=== PATIENT | female | born 1950 | race Caucasian/White ===

== ENCOUNTER 2016-06-13 08:33 | Emergency (ER) | payer BC ==
[2016-06-13 08:38] VITALS: BP 147/79; PULSE 81; TEMP 97.8; O2SAT 97; BMI 27.4
[2016-06-13] MEDS ORDERED: Oxycodone/Acetaminophen 5/325 mg Tab ONE (09:29)
[2016-06-13] MEDS ORDERED: Oxycodone/Acetaminophen 5/325 mg Tab PO ONE (09:33)
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
--- NOTE | 2016-06-13 13:25 | RAD ---
PROCEDURE: Left Ankle Radiographs. HISTORY: ankle fracture COMPARISON: None FINDINGS: BONES: Normal. No fracture. JOINTS: Normal. No osteoarthritis. Ankle mortise maintained. Talar dome intact SOFT TISSUES: Normal. OTHER FINDINGS: None. IMPRESSION: Normal left ankle radiographs.
--- NOTE | 2016-06-13 13:25 | RAD ---
PROCEDURE: Left Foot Radiographs. HISTORY: foot fracture COMPARISON: None. FINDINGS: BONES: Plantar calcaneal spur noted. No osseous fracture identified. JOINTS: Normal. SOFT TISSUES: Normal. OTHER FINDINGS: None. IMPRESSION: No acute fracture.
== END 2016-06-13 13:57 | disposition home or self-care (01) ==
LOC: H.ER 08:33
DX: M25.572 Pain in left ankle and joints of left foot (principal); G20 Parkinson's disease; I10 Essential (primary) hypertension

== ENCOUNTER 2016-06-23 21:48 | Emergency (ER) | payer BC ==
[2016-06-23 21:48] VITALS: BMI 27.4
[2016-06-23 21:57] VITALS: RESP 16; TEMP 98.2; O2SAT 99
--- NOTE | 2016-06-23 22:31 | ED PDOC ---
HPI: Chest Pain Time Seen by Provider: 06/23/16 22:02 Chief Complaint (Nursing): Chest Pain Chief Complaint (Provider): Chest pain and abdominal pain History Per: Patient Additional Complaint(s): 66 yo female, no PMH, presents to ED for evaluation of abdominal cramping and increased flatulence that developed after eating dinner tonight. No nausea or vomiting. 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 Pt reports that she also experienced "stabbing" chest pain for a few seconds around 5 pm. Pt denies any chest pain or SOB at this time. Past Medical History Reviewed: Nursing Documentation, Vital Signs Vital Signs: Last Vital Signs Temp 98.2 F 06/23/16 21:49 Pulse 101 H 06/23/16 22:42 Resp 16 06/23/16 21:49 BP 131/78 06/23/16 22:03 Pulse Ox 99 06/23/16 22:31 - Medical History PMH: Anxiety, HTN, Hypothyroidism, Malignancy (breast cancer, thyroid cancer in remission), Parkinson's Disease Denies: Chronic Kidney Disease - Surgical History Other surgeries: Lumpectomy, Thyroidectomy - Family History Family History: States: CAD - Living Arrangements Living Arrangements: With Family - Social History Current smoker - smoking cessation education provided: No Alcohol: None Drugs: Denies - Immunization History Hx Tetanus Toxoid Vaccination: Yes Hx Influenza Vaccination: No Hx Pneumococcal Vaccination: No - Home Medications Home Medications: Ambulatory Orders Medication Instructions Recorded Ca Pantothenate/Folic Acid/V [Once 1 tab PO DAILY 08/11/14 Daily Multi-Vitamin] Carbidopa/Levodopa [Sinemet 25-100 1 tab PO QID 08/11/14 25 mg-100 mg] Ergocalciferol (Vitamin D2) 50,000 unit PO QWK 08/11/14 [Vitamin D2] Levothyroxine [Synthroid] 125 mcg PO DAILY 08/11/14 Rasagiline Mesylate [Azilect] 1 mg PO DAILY 08/11/14 Ropinirole HCl [Requip Xl] 4 mg PO BID 08/11/14 Naproxen 375 mg PO Q8 PRN #21 tab 04/29/15 diaZEpam [Valium] 5 mg PO Q6 PRN #8 tab 04/29/15 traMADol [Ultram] 50 mg PO TID PRN #12 tab 03/31/16 Cephalexin [Keflex] 500 mg PO QID #28 capsule 05/20/16 Dicyclomine [Bentyl] 10 mg PO QID PRN #10 cap 06/24/16 - Allergies Allergies/Adverse Reactions: Allergies Allergy/AdvReac Type Severity Reaction Status Date / Time No Known Allergies Allergy Verified 06/23/16 21:49 TIGRE Risk Score for UA/NSTEMI - TIGRE Risk Score Age > 64: YES 3 or more CAD Risk Factors: NO Known CAD (Stenosis greater than 50%): NO Aspirin use in past 7 days: NO Severe Angina: NO EKG ST changes greater than 0.5mm: NO Positive Cardiac Marker: NO TIGRE Score: 1 Risk %: 5% Review of Systems ROS Statement: Except As Marked, All Systems Reviewed And Found Negative Gastrointestinal: Positive for: Abdominal Pain Physical Exam - Reviewed Nursing Documentation Reviewed: Yes Vital Signs Reviewed: Yes - Physical Exam Appears: Positive for: Well, Non-toxic, No Acute Distress Head Exam: Positive for: ATRAUMATIC, NORMAL INSPECTION, NORMOCEPHALIC Skin: Positive for: Normal Color, Warm, DRY Eye Exam: Positive for: EOMI, Normal appearance, PERRL ENT: Positive for: Normal ENT Inspection Neck: Positive for: Normal, Painless ROM Cardiovascular/Chest: Positive for: Regular Rate, Rhythm Respiratory: Positive for: CNT, Normal Breath Sounds Gastrointestinal/Abdominal: Positive for: Normal Exam, Bowel Sounds, Soft. Negative for: Tenderness, Distended, Guarding Back: Positive for: Normal Inspection Extremity: Positive for: Normal ROM Neurologic/Psych: Positive for: Alert, Oriented - Laboratory Results Result Diagrams: 06/23/16 22:34 06/23/16 22:34 - ECG O2 Sat by Pulse Oximetry: 99 Medical Decision Making Medical Decision Making: EKG: NSR at 86 bpm, no axis deviation or acute ST changes, as read by ED MD IV access established and treatment initiated with Bentyl PO for complaints of abdominal cramping Pt on re-eval reports feeling greatly improved. Pt asking to go home. Advised to wait for labs to return CBC resulted WNL COMP resulted with BUN 19 Troponin (-) UA WNL Pt on second re-eval, continues to feel greatly improved. Pt offered observation, however, requested to go home. Reprots feeling well no complaints of chest pain, SOB, nausea, vomiting or abdominal pain. Disposition - Clinical Impression Clinical Impression: Abdominal pain, Diarrhea - Patient ED Disposition Is Patient to be Admitted: No - Disposition Disposition: Routine/Home Disposition Time: 03:03 Condition: GOOD Prescriptions: Dicyclomine [Bentyl] 10 mg PO QID PRN #10 cap PRN Reason: Pain, Mild (1-3) Instructions: Acute Abdominal Pain (ED), Gas and Bloating (ED) - POA Present On Arrival: None
[2016-06-23 22:37] VITALS: BP 131/78
[2016-06-23 22:38] LABS: BASO % 0.5 % (0.0-2.0); EOS # 0.2 K/uL (0.0-0.7); EOS % 2.8 % (0.0-4.0); HEMATOCRIT 40.6 % (34.0-47.0); LYMPH # 0.8 K/uL (1.0-4.3); LYMPH % 12.3 % (20.0-40.0); MEAN CELL VOLUME 88.6 fl (81.0-99.0); MEAN CORPUSCULAR HEMOGLOBIN 30.1 pg (27.0-31.0); MEAN CORPUSCULAR HGB CONC 33.9 g/dL (33.0-37.0); MEAN PLATELET VOLUME 10.4 fl (7.2-11.7); MONO # 0.2 K/uL (0.0-0.8); MONO % 3.1 % (0.0-10.0); NEUT # 5.3 K/uL (1.8-7.0); NEUT % 81.3 % (50.0-75.0); NRBC % 0.1 % (0.0-0.0); RED CELL DISTRIBUTION WIDTH 12.9 % (11.5-14.5); WHITE BLOOD COUNT 6.5 K/uL (4.8-10.8)
[2016-06-23 22:43] VITALS: PULSE 101
[2016-06-23 22:47] LABS: ALB/GLOB RATIO 1.2 (1.0-2.1); ALKALINE PHOSPHATASE 72 U/L (38-126); ALT/SGPT 29 U/L (9-52); AMYLASE 108 U/L (30-110); AST/SGOT 32 U/L (14-36); BILIRUBIN,TOTAL 0.5 mg/dl (0.2-1.3); BLOOD UREA NITROGEN 19 mg/dl (7-17); CARBON DIOXIDE 32 mmol/L (22-30); CHLORIDE 99 mmol/L (98-107); GFR AFRICAN-AMERICAN > 60; GLUCOSE,RANDOM 92 mg/dL (65-105); SODIUM 143 mmol/l (132-148); TOTAL PROTEIN 8.1 G/DL (6.3-8.2)
[2016-06-23 23:17] LABS: THYROID STIMULATING HORMONE 4.09 mIU/ML (0.46-4.68)
[2016-06-23 23:56] LABS: RBC URINE 2 /hpf (0-3); URINE BACTERIA RARE (<OCC); URINE BILIRUBIN NEGATIVE (NEGATIVE); URINE BLOOD NEGATIVE (NEGATIVE); URINE COLOR STRAW (YELLOW); URINE GLUCOSE (UA) NEG (Normal); URINE KETONE NEGATIVE (NEGATIVE); URINE LEUKOCYTE ESTERASE NEG Leu/uL (Negative); URINE PROTEIN NEGATIVE (NEGATIVE); URINE UROBILINOGEN 0.2-1.0 mg/dL (0.2-1.0); WBC URINE < 1 /hpf (0-5)
--- NOTE | 2016-06-24 08:37 | CARD ---
APPROVED REPORT EKG Measurement Heart [id number] <Conclusion> Normal sinus rhythm Minimal voltage criteria for LVH, may be normal variant Poor R wave progression V1 to V4 Abnormal ECG baseline artefact
--- NOTE | 2016-06-24 09:00 | RAD ---
HISTORY: cp COMPARISON: Comparison is made to the previous study dated 03/08/2015 TECHNIQUE: Chest PA and lateral FINDINGS: LUNGS: No active pulmonary disease. PLEURA: No significant pleural effusion identified. No pneumothorax apparent. CARDIOVASCULAR: Normal. OSSEOUS STRUCTURES: No significant abnormalities. VISUALIZED UPPER ABDOMEN: Normal. OTHER FINDINGS: None. IMPRESSION: No active disease. No significant interval change.
== END 2016-06-24 06:22 | disposition home or self-care (01) ==
LOC: H.ER 21:48
DX: R10.9 Unspecified abdominal pain (principal); R19.7 Diarrhea, unspecified; G20 Parkinson's disease; I10 Essential (primary) hypertension; R07.9 Chest pain, unspecified; Z85.3 Personal history of malignant neoplasm of breast; Z85.850 Personal history of malignant neoplasm of thyroid

== ENCOUNTER 2016-08-30 14:00 | Observation (INO) | payer BC ==
[2016-08-30 14:01] VITALS: BMI 27.4
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
--- NOTE | 2016-08-30 14:55 | CT ---
PROCEDURE: CT HEAD WITHOUT CONTRAST. HISTORY: code stroke COMPARISON: None available. TECHNIQUE: Axial computed tomography images were obtained through the head/brain without intravenous contrast. Radiation dose: Total exam DLP = 835.83 mGy-cm. This CT exam was performed using one or more of the following dose reduction techniques: Automated exposure control, adjustment of the mA and/or kV according to patient size, and/or use of iterative reconstruction technique. FINDINGS: Streak artifact obscures evaluation of the skullbase. HEMORRHAGE: No intracranial hemorrhage. BRAIN: No mass effect or edema. The quintana-white matter differentiation appears grossly intact. Asymmetry is noted with hypodense region spanning approximately 10 mm in the posterior lateral inferior left cerebellum ; this is suspected to reflect localized encephalomalacia, atrophy, or prominent subarachnoid space. VENTRICLES: No hydrocephalus. CALVARIUM: Unremarkable. PARANASAL SINUSES: Unremarkable as visualized. No significant inflammatory changes. MASTOID AIR CELLS: Unremarkable as visualized. No inflammatory changes. OTHER FINDINGS: None. IMPRESSION: Asymmetry is noted with hypodense region spanning approximately 10 mm in the posterior lateral inferior left cerebellum ; this is suspected to reflect localized encephalomalacia, atrophy, or prominent subarachnoid space. Please note that MRI with diffusion imaging is more sensitive in the detection of acute ischemic event. Findings discussed with Dr. Bhakta on 08/30/16 at 2:50 p.m.
[2016-08-30 15:10] LABS: BASO # 0.1 K/uL (0.0-0.2); EOS # 0.2 K/uL (0.0-0.7); EOS % 2.7 % (0.0-4.0); HEMATOCRIT 40.1 % (34.0-47.0); LYMPH # 1.5 K/uL (1.0-4.3); LYMPH % 23.9 % (20.0-40.0); MEAN CELL VOLUME 88.9 fl (81.0-99.0); MEAN CORPUSCULAR HEMOGLOBIN 30.2 pg (27.0-31.0); MEAN CORPUSCULAR HGB CONC 33.9 g/dL (33.0-37.0); MEAN PLATELET VOLUME 10.3 fl (7.2-11.7); MONO # 0.5 K/uL (0.0-0.8); MONO % 8.7 % (0.0-10.0); NEUT # 3.9 K/uL (1.8-7.0); NEUT % 63.7 % (50.0-75.0); RED CELL DISTRIBUTION WIDTH 13.3 % (11.5-14.5); WHITE BLOOD COUNT 6.1 K/uL (4.8-10.8)
[2016-08-30 15:19] LABS: ALB/GLOB RATIO 1.3 (1.0-2.1); ALKALINE PHOSPHATASE 66 U/L (38-126); ALT/SGPT 33 U/L (9-52); AST/SGOT 28 U/L (14-36); BILIRUBIN,TOTAL 0.4 mg/dl (0.2-1.3); BLOOD UREA NITROGEN 13 mg/dl (7-17); CALCIUM 9.5 mg/dL (8.4-10.2); CARBON DIOXIDE 30 mmol/L (22-30); CHLORIDE 102 mmol/L (98-107); CHOLESTEROL 245 mg/dL (0-199); GFR AFRICAN-AMERICAN > 60; GLUCOSE,RANDOM 79 mg/dL (65-105); POTASSIUM 3.8 MMOL/L (3.6-5.0); SODIUM 142 mmol/l (132-148); TOTAL PROTEIN 8.1 G/DL (6.3-8.2)
[2016-08-30] MEDS: Sodium Chloride 0.9% 500 ML IV SCH (15:29)
--- NOTE | 2016-08-30 15:29 | RAD ---
HISTORY: code stroke COMPARISON: 06/23/2016. FINDINGS: LUNGS: No active pulmonary disease. PLEURA: No significant pleural effusion identified, no pneumothorax apparent. CARDIOVASCULAR: No radiographic findings to suggest acute or significant cardiovascular disease. OSSEOUS STRUCTURES: No significant abnormalities. VISUALIZED UPPER ABDOMEN: Normal. OTHER FINDINGS: None. IMPRESSION: No active disease. No significant interval change compared to the prior examination(s).
[2016-08-30 15:35] LABS: PARTIAL THROMBOPLASTIN TIME 28.9 Seconds (25.6-37.1)
[2016-08-30] MEDS ORDERED: Gadodiamide 287 MG/ML VIAL (15ML) IV ONE (15:45)
--- NOTE | 2016-08-30 17:12 | MRI ---
PROCEDURE: MRI BRAIN WITH AND WITHOUT CONTRAST HISTORY: stroke eval and cerebellar findings COMPARISON: None. TECHNIQUE: Multiplanar, multisequence MR images of the brain were obtained with and without intravenous contrast enhancement. 13 cc Omniscan was injected intravenously FINDINGS: HEMORRHAGE: None DWI: No evidence of an acute or early subacute infarction. BRAIN PARENCHYMA: There are scattered T2/FLAIR hyperintense foci in the subcortical supratentorial white matter. Walker-white matter differentiation is preserved. There is no mass, mass effect or abnormal extra-axial fluid collection. The midline sagittal structures are normal. ENHANCEMENT: No abnormal parenchymal or leptomeningeal intracranial enhancement. There is a developmental venous anomaly in the left temporal lobe. VENTRICLES: There is mild global parenchymal volume loss and proportionate enlargement of the ventricles and cortical sulci. There is also mild cerebellar volume loss. The questioned abnormality in the left cerebellar hemisphere corresponds to volume averaging from a prominent folia. CRANIUM: There is normal bone marrow signal pattern. ORBITS: Grossly unremarkable. PARANASAL SINUSES/MASTOIDS: Predominantly clear. VASCULAR SYSTEM: There are normal signal voids in the larger intracranial arteries. OTHER FINDINGS: None . IMPRESSION: 1. No acute intracranial abnormality. Specifically, no evidence of acute infarction. 2. Mild supratentorial white matter changes are strictly nonspecific but statistically most compatible with mild chronic microangiopathic changes. 3. Mild cerebral and cerebellar volume loss.
--- NOTE | 2016-08-30 19:25 | CARD ---
APPROVED REPORT EKG Measurement Heart [id number] <Conclusion> Normal sinus rhythm Normal ECG
[2016-08-30] MEDS ORDERED: Pneumococcal 23-Valent Vaccine IM ONE (20:25)
[2016-08-30] MEDS ORDERED: CHLORZOXAZONE 375 MG PO SCH (20:30)
--- NOTE | 2016-08-30 20:59 | CP.PCM.HP ---
History of Present Illness - History of Present Illness History of Present Illness: Hospitalist Admission H&P (Patient was seen and examined partly in the ER and then after patient was brought to [facility] as I called into Rapid Response while patient was in the ER) PMD: Dr. Vance CODE STATUS: FULL CODE. NO living will/advance directive. Sister Aurelia [phone] was designated by patient as her Health Care Proxy. CHIEF COMPLAINT: Dizziness 66 year old female who was brought into [facility] ER via EMS with a chief complaint of dizziness. Patient states that for some time now she has been having difficulty with sleep. She went to see her Neurologist Dr. Abdias Ignacio this past Friday and she was prescribed Clonazepam 0.5 mg PO at night time for as needed for sleep. Patient states that she took one tablet of Clonazepam shortly after 1 AM earlier this morning as she was again having difficulty sleeping. 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 Because of this she sat back down and her colleagues called EMS who then brought her here. Currently upon FULL ROS there is NO chest pain, NO palpitations, NO SOB/Cough/ Wheezing, NO dysphagia/odynophagia, NO abdominal pain, NO n/v/d/c, NO black/ bloody stools, NO headaches, NO new changes in vision (blurriness of vision but states that this has been present before the dizziness and she has to follow up with her eye physician for new Rx for glassess), NO eye pain, NO new changes in hearing/ear pain, NO paresthesias, NO edema PMHx: Brain Tumor (diagnosed in 2013 and being followed by Neurologist Dr. Abdias Ignacio), Left Breast CA (treated via Lumpectomy and Lymph Node Resection and Radiation by Dr. Farrar 20 years ago and she follows up with him [id number]), Thyroid CA (treated via Thyroidectomy and Radiation by Dr. Staton and she follows up with him Q1Year in March), Parkinson's Disease (being followed by Neurologist Dr. 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, NO alcohol, NO illicit drugs Family Hx: Mom ( of complications of Alzheimer's Disease at 88 y/o), Dad ( of [place] at 77 y/o) Present on Admission - Present on Admission Any Indicators Present on Admission: Yes History of DVT/PE: No History of Uncontrolled Diabetes: No Urinary Catheter: No Decubitus Ulcer Present: No Review of Systems - Review of Systems Review of Systems: Please see HPI Past Patient History - Infectious Disease Hx of Infectious Diseases: None - Past Medical History & Family History Past Medical History?: Yes Pertinent Family History: Please see HPI - Past Social History Smoking Status: Never Smoked - CARDIAC Hx Cardiac Disorders: Yes Hx Hypertension: Yes - PULMONARY Hx Respiratory Disorders: No - NEUROLOGICAL Hx Neurological Disorder: Yes Hx Parkinson's Disease: Yes - HEENT Hx HEENT Problems: No - RENAL Hx Chronic Kidney Disease: No - ENDOCRINE/METABOLIC Hx Endocrine Disorders: Yes Hx Hypothyroidism: Yes - HEMATOLOGICAL/ONCOLOGICAL Hx Blood Disorders: Yes Hx Cancer: Yes (Left breast, thyroid) - INTEGUMENTARY Hx Dermatological Problems: No - MUSCULOSKELETAL/RHEUMATOLOGICAL Hx Musculoskeletal Disorders: No Hx Falls: No - GASTROINTESTINAL Hx Gastrointestinal Disorders: No - GENITOURINARY/GYNECOLOGICAL Hx Genitourinary Disorders: Yes Hx Uterine Cancer: Yes - PSYCHIATRIC Hx Anxiety: Yes - SURGICAL HISTORY Hx Surgeries: Yes Hx Thyroidectomy: Yes Other/Comment: Left lumpectomy. - ANESTHESIA Hx Anesthesia: Yes Hx Anesthesia Reactions: No Meds Allergies/Adverse Reactions: Allergies Allergy/AdvReac Type Severity Reaction Status Date / Time No Known Allergies Allergy Verified 08/30/16 14:05 Physical Exam - Constitutional Appears: Non-toxic, No Acute Distress - Head Exam Head Exam: ATRAUMATIC, NORMAL INSPECTION, NORMOCEPHALIC - Eye Exam Eye Exam: EOMI, Normal appearance, PERRL Pupil Exam: NORMAL ACCOMODATION, PERRL - ENT Exam ENT Exam: Mucous Membranes Moist, Normal Exam, Normal External Ear Exam, Normal Oropharynx - Neck Exam Neck exam: Positive for: Normal Inspection Additional comments: NO cervical/supraclavicular/submandibular lymphadenopathy - Respiratory Exam Respiratory Exam: Clear to Auscultation Bilateral, NORMAL BREATHING PATTERN Additional comments: CTA B/L, NO R/R/W - Cardiovascular Exam Cardiovascular Exam: REGULAR RHYTHM, +S1, +S2 Additional comments: NS1 and NS2, NO M/R/G - GI/Abdominal Exam GI & Abdominal Exam: Normal Bowel Sounds, Soft Additional comments: BSx4, Soft, NT, ND, NO HSM, NO guarding/rebound tenderness - Extremities Exam Extremities exam: Positive for: normal inspection Additional comments: NO edema Capillary Refill is 2 seconds Pulses are strong and equal - Neurological Exam Neurological exam: Alert, CN II-XII Intact, Oriented x3 Additional comments: Resting Tremor of the hands and legs - Psychiatric Exam Psychiatric exam: Normal Affect, Normal Mood Results - Vital Signs Recent Vital Signs: Last Vital Signs Temp 97.8 F 08/30/16 19:52 Pulse 85 08/30/16 20:16 Resp 18 08/30/16 20:16 BP 151/93 H 08/30/16 19:52 Pulse Ox 99 08/30/16 19:52 - Labs Result Diagrams: 08/30/16 14:54 08/30/16 14:54 Assessment & Plan (1) Dizziness Assessment and Plan: This seems to have resolved This is likely secondary to the Clonazepam CT Head showed asymmetry with hypodense region spanning 10 mm in the posterior lateral inferior left cerebellum which is suspected to reflect localized encephalomalacia, atrophy, or prominent subarachnoid space. MRI Brain showed no evidence of acute infarction, mild supratentorial white matter changes most compatible with mild chronic microangiopathic changes Please note that there was NO brain mass noted on either CT or MRI Brain F/U further recommendations from Neurologist Dr. Ang who was made aware of patient by the ER Physician Patient will be likely for discharge in the morning 08/31/16 Status: Acute (2) Parkinsons disease Assessment and Plan: Neupro 6 mg TD 1x/day Azilect 1 mg PO 1x/day Carbidopa/Levodopa 25-100 mg PO TID Lorzone 375 mg PO 2x/day F/U with Neurologist Dr. Abdias Ignacio as an outpatient Status: Chronic (3) Hypothyroidism Assessment and Plan: Synthroid 112 mcg PO 1x/day F/U TSH and T4 Status: Chronic (4) Anxiety Assessment and Plan: Lexapro 10 mg PO 1x/day Status: Chronic (5) Prophylactic measure Assessment and Plan: Protonix 40 mg PO 1x/day Lovenox 40 mg SC 1x/day Regular Diet Cerefalin 1 tab PO 1x/day Coenzyme Q-10 200 mg PO 1x/day Mag Oxide 500 mg PO 1x/day Calcium Carb/Vitamin D3 1 tab PO 1x/day Status: Acute
[2016-08-30] MEDS ORDERED: Patient's Own Med (Ubidecarenone [Coenzyme Q-10] 200 mg) PO SCH (21:00)
[2016-08-30] MEDS: Enoxaparin 40 mg Syringe SC SCH (22:27)
[2016-08-31] MEDS ORDERED: Levothyroxine 112 MCG TAB PO SCH (06:30)
[2016-08-31] MEDS: Sodium Chloride 0.9% 500 ML IV SCH (06:47)
[2016-08-31 07:48] LABS: T4 8.58 ug/dl (5.5-11.0)
[2016-08-31 08:02] LABS: THYROID STIMULATING HORMONE 3.86 mIU/ML (0.46-4.68)
[2016-08-31] MEDS ORDERED: ROTIGOTINE 6 MG TD SCH (09:00)
[2016-08-31] MEDS ORDERED: Multivitamin With Minerals Tab PO SCH (09:00)
[2016-08-31] MEDS ORDERED: Calcium-Vit D 500 mg-200 Units Tab UD PO SCH (09:00)
--- NOTE | 2016-08-31 11:47 | CP.PCM.PN ---
Objective - Vital Signs/Intake and Output Vital Signs (last 24 hours): Temp Pulse Resp BP Pulse Ox 97.7 F 69 18 128/85 98 08/31/16 08:00 08/31/16 08:00 08/31/16 08:00 08/31/16 08:00 08/31/16 08:00 - Medications Medications: Current Medications Calcium/Vitamin D (Oyster Shell Calcium/Vitamin D 500 Mg-200 Iu) 1 tab PO DAILY [facility] Carbidopa/Levodopa (Sinemet) 1 tab PO TID [facility] Enoxaparin Sodium (Lovenox) 40 mg SC DAILY [facility] PRN Reason: Protocol Last Admin: 08/30/16 22:27 Dose: 40 mg Escitalopram Oxalate (Lexapro) 10 mg PO HS [facility] Last Admin: 08/30/16 21:04 Dose: 10 mg Home Med (Chlorzoxazone [Lorzone]) 375 mg PO BID [facility] Home Med (Rasagiline Mesylate [Azilect]) 1 mg PO DAILY [facility] Home Med (Rotigotine [Neupro]) 6 mg TD DAILY [facility] Sodium Chloride (Sodium Chloride 0.9%) 500 mls @ 100 mls/hr IV .Q5H [facility] Last Admin: 08/31/16 06:47 Dose: 100 mls/hr Levothyroxine Sodium (Synthroid) 112 mcg PO DAILY@0630 [facility] Last Admin: 08/31/16 06:46 Dose: 112 mcg Magnesium Oxide (Mag-Ox) 800 mg PO DAILY [facility] Multivitamins/Minerals (Therapeutic-M Tab) 1 tab PO DAILY [facility] - Labs Labs: PT 11.1 Seconds (9.8-13.1) 08/30/16 14:54 INR 1.0 (0.9-1.2) 08/30/16 14:54 APTT 28.9 Seconds (25.6-37.1) 08/30/16 14:54
[2016-08-31] MEDS: Enoxaparin 40 mg Syringe SC SCH (12:00)
--- NOTE | 2016-08-31 12:01 | CP.PCM.CON ---
History of Present Illness - History of Present Illness History of Present Illness: Mrs. Thakkar is a 66-year-old woman with a past medical history of Parkinson's disease (being managed by Dr. Ignacio), thyroid cancer and breast cancer, who was also told that she has a benign brain tumor, and presented to the ED with complaints of dizziness and gait instability. She had taken clonazepam the night before due to insomnia. She does not usually take this medication. Today , she states that she is feeling better and is able to ambulate similar to her baseline status. She did not have any other complaints and denied headache, nausea, visual changes, chest pain, SOB, abdominal pain, muscle aches or joint pain and did not have any skin complaints. Review of Systems - Review of Systems All systems: reviewed and no additional remarkable complaints except Past Patient History - Infectious Disease Hx of Infectious Diseases: None - Past Medical History & Family History Past Medical History?: Yes - Past Social History Smoking Status: Never Smoked - CARDIAC Hx Cardiac Disorders: Yes Hx Hypertension: Yes - PULMONARY Hx Respiratory Disorders: No - NEUROLOGICAL Hx Neurological Disorder: Yes Hx Parkinson's Disease: Yes - HEENT Hx HEENT Problems: No - RENAL Hx Chronic Kidney Disease: No - ENDOCRINE/METABOLIC Hx Endocrine Disorders: Yes Hx Hypothyroidism: Yes - HEMATOLOGICAL/ONCOLOGICAL Hx Blood Disorders: Yes Hx Cancer: Yes (Left breast, thyroid) - INTEGUMENTARY Hx Dermatological Problems: No - MUSCULOSKELETAL/RHEUMATOLOGICAL Hx Musculoskeletal Disorders: No Hx Falls: No - GASTROINTESTINAL Hx Gastrointestinal Disorders: No - GENITOURINARY/GYNECOLOGICAL Hx Genitourinary Disorders: Yes Hx Uterine Cancer: Yes - PSYCHIATRIC Hx Anxiety: Yes - SURGICAL HISTORY Hx Surgeries: Yes Hx Thyroidectomy: Yes Other/Comment: Left lumpectomy. - ANESTHESIA Hx Anesthesia: Yes Hx Anesthesia Reactions: No Meds Allergies/Adverse Reactions: Allergies Allergy/AdvReac Type Severity Reaction Status Date / Time No Known Allergies Allergy Verified 08/30/16 14:05 - Medications Medications: Current Medications Calcium/Vitamin D (Oyster Shell Calcium/Vitamin D 500 Mg-200 Iu) 1 tab PO DAILY [facility] Carbidopa/Levodopa (Sinemet) 1 tab PO TID [facility] Enoxaparin Sodium (Lovenox) 40 mg SC DAILY [facility] PRN Reason: Protocol Last Admin: 08/30/16 22:27 Dose: 40 mg Escitalopram Oxalate (Lexapro) 10 mg PO HS [facility] Last Admin: 08/30/16 21:04 Dose: 10 mg Home Med (Chlorzoxazone [Lorzone]) 375 mg PO BID [facility] Home Med (Rasagiline Mesylate [Azilect]) 1 mg PO DAILY [facility] Home Med (Rotigotine [Neupro]) 6 mg TD DAILY [facility] Sodium Chloride (Sodium Chloride 0.9%) 500 mls @ 100 mls/hr IV .Q5H [facility] Last Admin: 08/31/16 06:47 Dose: 100 mls/hr Levothyroxine Sodium (Synthroid) 112 mcg PO DAILY@0630 [facility] Last Admin: 08/31/16 06:46 Dose: 112 mcg Magnesium Oxide (Mag-Ox) 800 mg PO DAILY [facility] Multivitamins/Minerals (Therapeutic-M Tab) 1 tab PO DAILY [facility] Physical Exam - Constitutional Appears: Well - Head Exam Head Exam: ATRAUMATIC, NORMAL INSPECTION, NORMOCEPHALIC - Eye Exam Eye Exam: EOMI, Normal appearance, PERRL - Neck Exam Neck exam: Positive for: Normal Inspection - Respiratory Exam Respiratory Exam: Clear to Auscultation Bilateral, NORMAL BREATHING PATTERN - Cardiovascular Exam Cardiovascular Exam: REGULAR RHYTHM, +S1, +S2 - GI/Abdominal Exam GI & Abdominal Exam: Normal Bowel Sounds, Soft. absent: Tenderness - Back Exam Back exam: NORMAL INSPECTION - Neurological Exam Neurological exam: Abnormal Gait, CN II-XII Intact, Oriented x3, Reflexes Normal Additional comments: wide-based shuffling slow gait and slow turning radius. Cogwheeling and rigidity present in upper extremities L>R - Expanded Neurological Exam Expanded Patient oriented to: person, place, time Cranial nerves: EOM's Intact: Normal, Facial Sensation: Normal, Gag Reflex: Normal, Nystagmus: Normal Cerebellar Function: Finger to Nose: Normal, Heel to Flores: Normal Upper motor neuron: Babinski Sign: Normal Sensory exam: Lower Extremity Light Touch: Normal, Lower Extremity Pin Prick: Normal, Upper Extremity Light Touch: Normal, Upper Extremity Pin Prick: Normal Neuro motor strength exam: Left Upper Extremity: 4, Right Upper Extremity: 4, Left Lower Extremity: 4, Right Lower Extremity: 4 DTR: Achilles Tendon Left: 2+, Achilles Tendon Right: 2+, Bicep Left: 2+, Bicep Right: 2+, Brachioradialis Left: 2+, Brachioradialis Right: 2+, Patellar Left: 2 +, Patellar Right: 2+, Tricep Left: 2+, Tricep Right: 2+ - Psychiatric Exam Psychiatric exam: Normal Affect, Normal Mood - Skin Skin Exam: Dry, Intact, Normal Color, Warm Results - Vital Signs Recent Vital Signs: Last Vital Signs Temp 97.7 F 08/31/16 08:00 Pulse 69 08/31/16 08:00 Resp 18 08/31/16 08:00 BP 128/85 08/31/16 08:00 Pulse Ox 98 08/31/16 08:00 - Labs Result Diagrams: 08/30/16 14:54 08/30/16 14:54 Labs: Laboratory Results - last 24 hr 08/31/16 06:30 Thyroxine (T4) 8.58 TSH 3rd Generation 3.86 - Imaging and Cardiology MRI - head Status: Image reviewed by me, Report reviewed by me (No acute findings or evidence of tumor, intracranial hemorrhage or infarct. Chronic small vessel and other ischemic changes noted. ) Assessment & Plan (1) Dizziness Assessment and Plan: Likely due to clonazepam and history of PD with being on Sinemet (can also cause dizziness). MRI of the brain is not concerning. Continue aspirin 81 mg daily for cerebrovascular protection since she does have chronic ischemic changes. PT/OT evaluation and treatment is recommended. CTA of the head is recommended to evaluate the cerebral circulation. Lipid panel, HbA1c, TSH, B12 , folate to evaluate for other causes and manage risk factors. Status: Acute Priority: Medium
[2016-08-31] MEDS ORDERED: Iodixanol 320 MG/ML 100 ML BOTTLE IV ONE (15:33)
[2016-08-31] MEDS ORDERED: Sodium Chloride 0.9% 100 ML ONE (15:33)
[2016-08-31 16:07] VITALS: BP 120/76; PULSE 79; RESP 20; TEMP 98.1; O2SAT 96
--- NOTE | 2016-08-31 18:23 | CP.PCM.DIS ---
Provider - Provider Date of Admission: 08/30/16 17:26 Attending physician: Neil Beckford MD Primary care physician: Dr Vance Consults: Neurology ; Dr Ang Time Spent in preparation of Discharge (in minutes): 40 Diagnosis - Discharge Diagnosis (1) Dizziness Status: Acute Priority: Medium (2) Anxiety Status: Chronic (3) Hypothyroidism Status: Chronic (4) Parkinsons disease Status: Chronic (5) CVA (cerebral vascular accident) Status: Ruled-out Hospital Course - Lab Results Lab Results: Most Recent Lab Values WBC 6.1 K/uL (4.8-10.8) 08/30/16 14:54 RBC 4.51 Mil/uL (3.80-5.20) 08/30/16 14:54 Hgb 13.6 g/dL (12.0-16.0) 08/30/16 14:54 Hct 40.1 % (34.0-47.0) 08/30/16 14:54 MCV 88.9 fl (81.0-99.0) 08/30/16 14:54 MCH 30.2 pg (27.0-31.0) 08/30/16 14:54 MCHC 33.9 g/dL (33.0-37.0) 08/30/16 14:54 RDW 13.3 % (11.5-14.5) 08/30/16 14:54 Plt Count 171 K/uL (130-400) 08/30/16 14:54 MPV 10.3 fl (7.2-11.7) 08/30/16 14:54 Neut % (Auto) 63.7 % (50.0-75.0) 08/30/16 14:54 Lymph % (Auto) 23.9 % (20.0-40.0) 08/30/16 14:54 Mayes % (Auto) 8.7 % (0.0-10.0) 08/30/16 14:54 Eos % (Auto) 2.7 % (0.0-4.0) 08/30/16 14:54 Baso % (Auto) 1.0 % (0.0-2.0) 08/30/16 14:54 Neut # 3.9 K/uL (1.8-7.0) 08/30/16 14:54 Lymph # 1.5 K/uL (1.0-4.3) 08/30/16 14:54 Mayes # 0.5 K/uL (0.0-0.8) 08/30/16 14:54 Eos # 0.2 K/uL (0.0-0.7) 08/30/16 14:54 Baso # 0.1 K/uL (0.0-0.2) 08/30/16 14:54 PT 11.1 Seconds (9.8-13.1) 08/30/16 14:54 INR 1.0 (0.9-1.2) 08/30/16 14:54 APTT 28.9 Seconds (25.6-37.1) 08/30/16 14:54 Sodium 142 mmol/l (132-148) 08/30/16 14:54 Potassium 3.8 MMOL/L (3.6-5.0) 08/30/16 14:54 Chloride 102 mmol/L (98-107) 08/30/16 14:54 Carbon Dioxide 30 mmol/L (22-30) 08/30/16 14:54 Anion Gap 13 (10-20) 08/30/16 14:54 BUN 13 mg/dl (7-17) 08/30/16 14:54 Creatinine 0.7 mg/dL (0.7-1.2) 08/30/16 14:54 Est GFR ( Amer) > 60 08/30/16 14:54 Est GFR (Non-Af Amer) > 60 08/30/16 14:54 POC Glucose (mg/dL) 84 mg/dL (65-110) 08/30/16 14:52 Random Glucose 79 mg/dL (65-105) 08/30/16 14:54 Hemoglobin A1c 5.5 % (4.2-6.5) 08/30/16 14:54 Calcium 9.5 mg/dL (8.4-10.2) 08/30/16 14:54 Total Bilirubin 0.4 mg/dl (0.2-1.3) 08/30/16 14:54 AST 28 U/L (14-36) 08/30/16 14:54 ALT 33 U/L (9-52) 08/30/16 14:54 Alkaline Phosphatase 66 U/L (38-126) 08/30/16 14:54 Troponin I < 0.0120 ng/mL (0.00-0.120) 08/30/16 14:54 Total Protein 8.1 G/DL (6.3-8.2) 08/30/16 14:54 Albumin 4.6 g/dL (3.5-5.0) 08/30/16 14:54 Globulin 3.5 gm/dL (2.2-3.9) 08/30/16 14:54 Albumin/Globulin Ratio 1.3 (1.0-2.1) 08/30/16 14:54 Triglycerides 205 mg/DL (0-149) H D 08/30/16 14:54 Cholesterol 245 mg/dL (0-199) H 08/30/16 14:54 LDL Cholesterol Direct 100 mg/dL (0-129) 08/30/16 14:54 HDL Cholesterol 103 MG/DL (30-70) H 08/30/16 14:54 Thyroxine (T4) 8.58 ug/dl (5.5-11.0) 08/31/16 06:30 TSH 3rd Generation 3.86 mIU/ML (0.46-4.68) 08/31/16 06:30 Blood Type O POSITIVE 08/30/16 14:54 Blood Type Confirm O POSITIVE 08/30/16 16:43 Antibody Screen Negative 08/30/16 14:54 BBK History Checked No verified bt 08/30/16 14:54 - Hospital Course Hospital Course: 66 year old female who was brought into [facility] ER via EMS with a chief complaint of dizziness. Patient states that she took one tablet of Clonazepam as she was again having difficulty sleeping, then after a few minutes , noticed that she was walking more towards her left side and she felt like she was going to fall down backwards . Code Stroke was called in ED - CT of head was negative. MRI of the Brain did not show any acute CVA. Neurology was consulted - Dr Ang felt that the Dizziness may be sec to her meds. CTA of Brain done was negative. Physical therapy was consulted - rec TCU placement however pt refused because she has some family emergency she needed to attend to. (1) Dizziness prob sec to medications CVA ruled out This resolved. This is likely secondary to the Clonazepam, d/c Clonazepam CT Head showed asymmetry with hypodense region spanning 10 mm in the posterior lateral inferior left cerebellum which is suspected to reflect localized encephalomalacia, atrophy, or prominent subarachnoid space. MRI Brain showed no evidence of acute infarction, mild supratentorial white matter changes most compatible with mild chronic microangiopathic changes Please note that there was NO brain mass noted on either CT or MRI Brain CTA of Brain : negative Neurology - Dr Ang was consulted PT consulted- rec TCU vs [facility] - pt refused , agreed to Outpt PT (2) Parkinsons disease Neupro 6 mg TD 1x/day Azilect 1 mg PO 1x/day Carbidopa/Levodopa 25-100 mg PO TID Lorzone 375 mg PO 2x/day F/U with Neurologist Dr. Abdias Ignacio as an outpatient Outpt PT (3) Hypothyroidism Synthroid 112 mcg PO 1x/day TSH normal (4) Anxiety Lexapro 10 mg PO 1x/day Status: Chronic (5) Prophylactic measure Protonix 40 mg PO 1x/day Lovenox 40 mg SC 1x/day Regular Diet Cerefalin 1 tab PO 1x/day Coenzyme Q-10 200 mg PO 1x/day Mag Oxide 500 mg PO 1x/day Calcium Carb/Vitamin D3 1 tab PO 1x/day Discharge Exam - Head Exam Head Exam: ATRAUMATIC, NORMAL INSPECTION, NORMOCEPHALIC - Eye Exam Eye Exam: EOMI, Normal appearance Pupil Exam: NORMAL ACCOMODATION - ENT Exam ENT Exam: Mucous Membranes Moist, Normal External Ear Exam - Neck Exam Neck exam: Full Rom - Respiratory Exam Respiratory Exam: NORMAL BREATHING PATTERN. absent: Respiratory Distress - Cardiovascular Exam Cardiovascular Exam: REGULAR RHYTHM, +S1, +S2 - GI/Abdominal Exam GI & Abdominal Exam: Normal Bowel Sounds, Soft. absent: Tenderness - Extremities Exam Extremities exam: full ROM, normal capillary refill - Back Exam Back exam: FULL ROM. absent: CVA tenderness (L), CVA tenderness (R) - Neurological Exam Neurological exam: Alert, CN II-XII Intact, Oriented x3, Reflexes Normal - Psychiatric Exam Psychiatric exam: Normal Affect, Normal Mood - Skin Skin Exam: Dry, Normal Color, Warm Discharge Plan - Follow Up Plan Condition: GOOD Disposition: HOME/ ROUTINE Additional Instructions: outpt physical therapy ff up with Neurology jacob appt with Dr Vance in 1 wk Referrals: Yogesh Vance MD [Family Provider] -
[2016-08-31] MEDS ORDERED: Magnesium Oxide 400 mg Tab UD PO SCH (21:00)
--- NOTE | 2016-09-02 10:50 | CT ---
PROCEDURE: CT Angiography of the Brain. HISTORY: vertigo COMPARISON: None available. TECHNIQUE: CT angiography of the neck and intracranial arteries was performed. Coronal and sagittal maximum intensity projection reformated images were generated. This CT exam was performed using one or more of the following dose reduction techniques: Automated exposure control, adjustment of the mA and/or kV according to patient size, and/or use of iterative reconstruction technique. FINDINGS: CTA of the neck: The common carotid internal and external carotid arteries are patent without evidence of significant stenosis or occlusion. The vertebral arteries are symmetrical in size and patent without evidence of focal stenosis. The partake arch is normal in caliber. The main pulmonary artery is normal in size. There is no evidence of mass lesion or lymphadenopathy in the neck. The upper airway is patent. The visualized portion of the lung apices demonstrate no acute pathology. INTERNAL CEREBRAL ARTERIES: Unremarkable. The skull base, petrous, cavernous and supraclinoid segments are bilaterally widely patient. ANTERIOR CEREBRAL ARTERIES: Unremarkable. A1 and A2 segments are widely patent. Smaller distal branches unremarkable, as visualized. MIDDLE CEREBRAL ARTERIES: Unremarkable. M1 and M2 segments are widely patent. Perisylvian branches grossly symmetric. POSTERIOR CIRCULATION: Basilar Artery: Unremarkable. Distal Vertebral Arteries: Unremarkable. Posterior Cerebral Arteries: Unremarkable. Posterior Inferior Cerebellar Arteries: Unremarkable. ANEURYSM/ VASCULAR MALFORMATIONS: None. OTHER FINDINGS: None. IMPRESSION: No evidence of occlusion or significant stenosis in the carotid arteries and vertebral arteries at the neck. No evidence of inclusion or stenosis in the visualized intracranial arteries. Preliminary report was submitted by [facility].
== END 2016-08-31 18:49 | disposition home or self-care (01) ==
LOC: H.ER 14:00 → INTOOBSV 17:26 → OBSVTOIN 17:26 → H.ERHOLD 17:26 → H.TEL 19:11
PROVIDERS: ADMIT Family Medicine; ATTEND Family Medicine
DX: R42 Dizziness and giddiness (principal); E03.9 Hypothyroidism, unspecified; F41.9 Anxiety disorder, unspecified; G20 Parkinson's disease; I10 Essential (primary) hypertension; Z85.3 Personal history of malignant neoplasm of breast; Z85.850 Personal history of malignant neoplasm of thyroid; R26.89 Other abnormalities of gait and mobility; Z23 Encounter for immunization
CPT/HCPCS: 36415; 70450; 70496; 70498; 70553; 71010; 80053; 80061; 82948; 83036; 84436; 84443; 84484; 85025; 85610; 85730; 86850; 86900; 90732; 93005; 97116; 97162; 97530; 99285; A9579; G0009; G0378; G8978; G8979; J1650; J7040; Q9967

== ENCOUNTER 2017-12-21 11:49 | Emergency (ER) | payer MEDICARE, BC ==
[2017-12-21 11:49] VITALS: BMI 27.4
--- NOTE | 2017-12-21 12:42 | ED PDOC ---
HPI: Abdomen Time Seen by Provider: 12/21/17 12:02 Chief Complaint (Nursing): Abdominal Pain Chief Complaint (Provider): abdominal pain History Per: Patient History/Exam Limitations: no limitations Onset/Duration Of Symptoms: Days (2), Gradual Current Symptoms Are (Timing): Still Present Location Of Pain/Discomfort: LUQ Quality Of Discomfort: Sharp Associated Symptoms: denies: Nausea, Vomiting, Diarrhea, Loss Of Appetite Exacerbating Factors: None Alleviating Factors: None Additional Complaint(s): 67yo female c/o left upper abdominal pain and lower chest discomfort ongoing for 2 days. Denies SOB, cough, weakness, fever, vomiting or diarrhea. Denies urinary symptoms. Abnormal Vaginal Bleeding: No Past Medical History Reviewed: Historical Data, Nursing Documentation, Vital Signs Vital Signs: Last Vital Signs Temp 97.8 F 12/21/17 11:58 Pulse 90 12/21/17 11:58 Resp 18 12/21/17 11:58 BP 135/81 12/21/17 11:58 Pulse Ox 99 12/21/17 11:58 - Medical History PMH: Anxiety, HTN, Hypothyroidism, Malignancy (breast cancer, thyroid cancer in remission), Parkinson's Disease Denies: Chronic Kidney Disease - Family History Family History: States: Unknown Family Hx, CAD - Living Arrangements Living Arrangements: With Family - Social History Current smoker - smoking cessation education provided: No - Immunization History Hx Tetanus Toxoid Vaccination: Yes Hx Influenza Vaccination: No Hx Pneumococcal Vaccination: No - Home Medications Home Medications: Ambulatory Orders Medication Instructions Recorded RX: Rasagiline Mesylate [Azilect] 1 mg PO DAILY 08/11/14 Boniva 150 mg PO Q30D 08/30/16 RX: Calcium Carbonate/Vitamin D3 1 tab PO DAILY 08/30/16 [Calcium 600 + Vit D Tablet] RX: Carbidopa/Levodopa 1 tab PO TID 08/30/16 [Carbidopa-Levodopa 25-100 Tab] RX: Chlorzoxazone [Lorzone] 375 mg PO BID 08/30/16 RX: Escitalopram [Lexapro] 10 mg PO DAILY 08/30/16 RX: Levothyroxine [Synthroid] 112 mcg PO DAILY 08/30/16 RX: Magnesium Oxide [Mgo] 250 mg PO DAILY 08/30/16 RX: Rotigotine [Neupro] 6 mg TD DAILY 08/30/16 RX: Ubidecarenone [Coenzyme Q-10] 100 mg PO DAILY 08/30/16 RX: Vit B12/Levomefolate/Vit B6/B2 1 tab PO DAILY 08/30/16 [Cerefolin Caplet] RX: Aspirin [Ecotrin] 81 mg PO DAILY 08/31/16 Biotin/Calcium Carbonate [Biotin 12/21/17 800 Mcg Tablet] RX: Ibuprofen [Motrin Tab] 600 mg PO Q6 PRN #15 tab 12/21/17 - Allergies Allergies/Adverse Reactions: Allergies Allergy/AdvReac Type Severity Reaction Status Date / Time No Known Allergies Allergy Verified 08/30/16 14:05 Review of Systems ROS Statement: Except As Marked, All Systems Reviewed And Found Negative Constitutional: Negative for: Fever Cardiovascular: Negative for: Chest Pain, Palpitations Respiratory: Negative for: Shortness of Breath Gastrointestinal: Positive for: Abdominal Pain. Negative for: Vomiting Genitourinary Female: Negative for: Dysuria Musculoskeletal: Negative for: Neck Pain, Arm Pain Skin: Negative for: Rash, Lesions Neurological: Negative for: Weakness, Numbness, Headache, Dizziness Psych: Negative for: Depression Physical Exam - Reviewed Nursing Documentation Reviewed: Yes Vital Signs Reviewed: Yes - Physical Exam Appears: Positive for: Well, Non-toxic, No Acute Distress Head Exam: Positive for: ATRAUMATIC, NORMAL INSPECTION, NORMOCEPHALIC Skin: Positive for: Normal Color, Warm, DRY Eye Exam: Positive for: EOMI, Normal appearance, PERRL ENT: Positive for: Normal ENT Inspection Neck: Positive for: Normal, Painless ROM Cardiovascular/Chest: Positive for: Regular Rate, Rhythm, Other (chest wall tenderness L ribs 10/11 on left, no ecchymosis or rash) Respiratory: Positive for: CNT, Normal Breath Sounds Pulses-Radial (L): 3+/4+ Pulses-Radial (R): 3+/4+ Gastrointestinal/Abdominal: Positive for: Soft, Tenderness (LUQ). Negative for: Guarding Back: Positive for: Normal Inspection Extremity: Positive for: Normal ROM Neurologic/Psych: Positive for: Alert, Oriented. Negative for: Motor/Sensory Deficits - Laboratory Results Result Diagrams: 12/21/17 12:30 12/21/17 12:30 - ECG ECG: Positive for: Interpreted By Me ECG Rhythm: Positive for: Normal ST Segment, Sinus Rhythm, Nonspecific Changes O2 Sat by Pulse Oximetry: 99 Pulse Ox Interpretation: Normal - CT Scan/US CT chest/abd/pelv Other Rad Studies (CT/US): Radiology Report Reviewed Medical Decision Making Medical Decision Making: Accession No. : [id number] Patient Name / ID : VERA WHITE / [id number] Exam Date : 12/21/2017 13:05:29 ( Approved ) Study Comment : Sex / Age : F / 67Y Creator : Pranay Casillas MD Dictator : Pranay Casillas MD Bottom Loader : Cow Trimmer : Pranay Casillas MD Approver2 : Report Date : 12/21/2017 14:34:27 My Comment : Date of service: 12/21/2017 PROCEDURE: CT Chest, Abdomen and Pelvis without intravenous contrast HISTORY: L upper abd and lower chest pain COMPARISON: None available. TECHNIQUE: Radiation dose: Total exam DLP = 464.5 mGy-cm. This CT exam was performed using one or more of the following dose reduction techniques: Automated exposure control, adjustment of the mA and/or kV according to patient size, and/or use of iterative reconstruction technique. FINDINGS: LUNGS: Clear. No nodule, mass or consolidation. MEDIASTINUM: Unremarkable. Normal caliber aorta and pulmonary arterial trunk. Normal size heart. LYMPH NODES: Unremarkable. PLEURA: Unremarkable. No pneumothorax. No pleural fluid. LIVER: Unremarkable. No gross lesion or ductal dilatation. GALLBLADDER AND BILE DUCTS: Unremarkable. PANCREAS: Unremarkable. No gross lesion or ductal dilatation. SPLEEN: Unremarkable. ADRENALS: Unremarkable. No mass. KIDNEYS AND URETERS: 2.4 x 3.9 cm high density mass arising from the upper pole of the right kidney. No hydronephrosis. No solid mass. VASCULATURE: Unremarkable. No aortic aneurysm. BOWEL: Unremarkable. No obstruction. No gross mural thickening. APPENDIX: No findings to suggest acute appendicitis. PERITONEUM: Unremarkable. No free fluid. No free air. LYMPH NODES: Unremarkable. No enlarged lymph nodes. BLADDER: Unremarkable. REPRODUCTIVE: Calcified uterine fibroids. BONES: No acute fracture. OTHER FINDINGS: None. IMPRESSION: No acute pathology involving the chest, abdomen pelvis. 2.4 x 3.9 cm high density mass arising from the upper pole of the right kidney. Renal mass protocol CT/MRI can be obtained for further characterization as clinically warranted on a nonemergent basis. Patient given copy results to bring to PMD to eval MRI outpatient of renal mass. Given normal CT, normal EKG, normal bloodwork stable for outpatient workup. Disposition - Clinical Impression Clinical Impression: Costal margin pain - Patient ED Disposition Is Patient to be Admitted: No Counseled Patient/Family Regarding: Studies Performed, Diagnosis, Need For Followup, Rx Given - Disposition Referrals: Evangelist Morlilo MD [Primary Care Provider] - Disposition: Routine/Home Disposition Time: 15:39 Condition: STABLE Additional Instructions: See your doctor for further testing. RECOMMEND MRI OF YOUR RIGHT KIDNEY TO BETTER EVALUATE CYST/MASS. CAN SCHEDULE OUTPATIENT Accession No. : [id number] Patient Name / ID : VERA WHITE / [id number] Exam Date : 12/21/2017 13:05:29 ( Approved ) Study Comment : Sex / Age : F / 67Y Creator : Pranay Casillas MD Dictator : Pranay Casillas MD Bottom Loader : Cow Trimmer : Pranay Casillas MD Approver2 : Report Date : 12/21/2017 14:34:27 My Comment : Date of service: 12/21/2017 PROCEDURE: CT Chest, Abdomen and Pelvis without intravenous contrast HISTORY: L upper abd and lower chest pain COMPARISON: None available. TECHNIQUE: Radiation dose: Total exam DLP = 464.5 mGy-cm. This CT exam was performed using one or more of the following dose reduction techniques: Automated exposure control, adjustment of the mA and/or kV according to patient size, and/or use of iterative reconstruction technique. FINDINGS: LUNGS: Clear. No nodule, mass or consolidation. MEDIASTINUM: Unremarkable. Normal caliber aorta and pulmonary arterial trunk. Normal size heart. LYMPH NODES: Unremarkable. PLEURA: Unremarkable. No pneumothorax. No pleural fluid. LIVER: Unremarkable. No gross lesion or ductal dilatation. GALLBLADDER AND BILE DUCTS: Unremarkable. PANCREAS: Unremarkable. No gross lesion or ductal dilatation. SPLEEN: Unremarkable. ADRENALS: Unremarkable. No mass. KIDNEYS AND URETERS: 2.4 x 3.9 cm high density mass arising from the upper pole of the right kidney. No hydronephrosis. No solid mass. VASCULATURE: Unremarkable. No aortic aneurysm. BOWEL: Unremarkable. No obstruction. No gross mural thickening. APPENDIX: No findings to suggest acute appendicitis. PERITONEUM: Unremarkable. No free fluid. No free air. LYMPH NODES: Unremarkable. No enlarged lymph nodes. BLADDER: Unremarkable. REPRODUCTIVE: Calcified uterine fibroids. BONES: No acute fracture. OTHER FINDINGS: None. IMPRESSION: No acute pathology involving the chest, abdomen pelvis. 2.4 x 3.9 cm high density mass arising from the upper pole of the right kidney. Renal mass protocol CT/MRI can be obtained for further characterization as clinically warranted on a nonemergent basis. Prescriptions: RX: Ibuprofen [Motrin Tab] 600 mg PO Q6 PRN #15 tab PRN Reason: Pain, Moderate (4-7) Instructions: Acute Abdomen (Belly Pain) Forms: [employer] (Belarusian)
[2017-12-21 12:59] LABS: BASO % 0.6 % (0.0-2.0); EOS # 0.1 K/uL (0.0-0.7); LYMPH # 0.9 K/uL (1.0-4.3); LYMPH % 16.9 % (20.0-40.0); MEAN CELL VOLUME 88.1 fl (81.0-99.0); MEAN CORPUSCULAR HEMOGLOBIN 29.8 pg (27.0-31.0); MEAN CORPUSCULAR HGB CONC 33.9 g/dL (33.0-37.0); MONO # 0.4 K/uL (0.0-0.8); MONO % 6.7 % (0.0-10.0); NEUT % 73.8 % (50.0-75.0); NRBC % 0.1 % (0.0-0.0); RBC 4.69 Mil/uL (3.80-5.20); RED CELL DISTRIBUTION WIDTH 13.2 % (11.5-14.5); WHITE BLOOD COUNT 5.4 K/uL (4.8-10.8)
[2017-12-21 13:13] LABS: ALB/GLOB RATIO 1.1 (1.0-2.1); ALBUMIN 4.3 g/dL (3.5-5.0); ALT/SGPT 16 U/L (9-52); AST/SGOT 23 U/L (14-36); BLOOD UREA NITROGEN 13 mg/dl (7-17); CALCIUM 9.6 mg/dL (8.4-10.2); GFR NON-AFRICAN AMERICAN > 60
[2017-12-21 13:21] LABS: SQUAMOUS EPITHIAL 8 /hpf (0-5); URINE BACTERIA RARE (<OCC); URINE BILIRUBIN NEGATIVE (NEGATIVE); URINE BLOOD NEGATIVE (NEGATIVE); URINE CLARITY SLIGHTY-CLOUDY (Clear); URINE COLOR YELLOW (YELLOW); URINE GLUCOSE (UA) NEG (Normal); URINE LEUKOCYTE ESTERASE SMALL Leu/uL (Negative); URINE PROTEIN NEGATIVE (NEGATIVE); URINE UROBILINOGEN 0.2-1.0 mg/dL (0.2-1.0)
[2017-12-21 14:28] VITALS: RESP 19
--- NOTE | 2017-12-21 14:35 | CT ---
Date of service: 12/21/2017 PROCEDURE: CT Chest, Abdomen and Pelvis without intravenous contrast HISTORY: L upper abd and lower chest pain COMPARISON: None available. TECHNIQUE: Radiation dose: Total exam DLP = 464.5 mGy-cm. This CT exam was performed using one or more of the following dose reduction techniques: Automated exposure control, adjustment of the mA and/or kV according to patient size, and/or use of iterative reconstruction technique. FINDINGS: LUNGS: Clear. No nodule, mass or consolidation. MEDIASTINUM: Unremarkable. Normal caliber aorta and pulmonary arterial trunk. Normal size heart. LYMPH NODES: Unremarkable. PLEURA: Unremarkable. No pneumothorax. No pleural fluid. LIVER: Unremarkable. No gross lesion or ductal dilatation. GALLBLADDER AND BILE DUCTS: Unremarkable. PANCREAS: Unremarkable. No gross lesion or ductal dilatation. SPLEEN: Unremarkable. ADRENALS: Unremarkable. No mass. KIDNEYS AND URETERS: 2.4 x 3.9 cm high density mass arising from the upper pole of the right kidney. No hydronephrosis. No solid mass. VASCULATURE: Unremarkable. No aortic aneurysm. BOWEL: Unremarkable. No obstruction. No gross mural thickening. APPENDIX: No findings to suggest acute appendicitis. PERITONEUM: Unremarkable. No free fluid. No free air. LYMPH NODES: Unremarkable. No enlarged lymph nodes. BLADDER: Unremarkable. REPRODUCTIVE: Calcified uterine fibroids. BONES: No acute fracture. OTHER FINDINGS: None. IMPRESSION: No acute pathology involving the chest, abdomen pelvis. 2.4 x 3.9 cm high density mass arising from the upper pole of the right kidney. Renal mass protocol CT/MRI can be obtained for further characterization as clinically warranted on a nonemergent basis. Patient admitted.
[2017-12-21 15:45] VITALS: BP 110/78; PULSE 78; TEMP 97.6
--- NOTE | 2017-12-22 00:09 | CARD ---
APPROVED REPORT Date of service: 12/21/2017 EKG Measurement Heart [id number] <Conclusion> Normal sinus rhythm Normal ECG
[2017-12-23 15:15] VITALS: O2SAT 99
== END 2017-12-21 15:46 | disposition home or self-care (01) ==
LOC: SUPCPDRO 11:49 → H.ER 11:49
DX: R07.1 Chest pain on breathing (principal); I10 Essential (primary) hypertension; G20 Parkinson's disease; Z82.49 Family history of ischemic heart disease and other diseases of the circulatory system; Z85.3 Personal history of malignant neoplasm of breast; Z85.850 Personal history of malignant neoplasm of thyroid
CPT/HCPCS: 71250; 74176; 80053; 81003; 84484; 85025; 93005; 96374; 99283; J1885

== ENCOUNTER 2018-01-12 13:00 | Emergency (ER) | payer MEDICARE, BC ==
[2018-01-12 13:00] VITALS: BMI 27.4
--- NOTE | 2018-01-12 16:07 | RAD ---
Date of service: 01/12/2018 PROCEDURE: Radiographs of the chest and abdomen (obstructive series) HISTORY: constipation COMPARISON: No prior. TECHNIQUE: AP radiograph of the chest, with upright and supine radiographs of the abdomen. FINDINGS: CHEST: Lungs: Clear. Cardiovascular: Normal size heart. No pulmonary vascular congestion. Pleura: No pleural fluid. No pneumothorax. Other findings: None. ABDOMEN AND PELVIS: Bowel: No evidence of bowel obstruction. Mild retained feces. Free air: None. Bones: Unremarkable. Other findings: None. IMPRESSION: Mild retained feces. No evidence of bowel obstruction. Otherwise unremarkable.
[2018-01-12] MEDS ORDERED: Magnesium Citrate Oral SOL (300 ml) PO STA (16:15)
--- NOTE | 2018-01-12 16:29 | ED PDOC ---
HPI: General Adult Time Seen by Provider: 01/12/18 13:58 Chief Complaint (Nursing): GI Problem History Per: Patient Additional Complaint(s): Pt. states for the past 4-5 days she has not had a BM. Today she used mineral oil and rectal suppository without any relief. Denies abdominal pain, melena, hemaotchezia, BRBPR, vomiting, diarrhea. Past Medical History Reviewed: Historical Data, Nursing Documentation, Vital Signs Vital Signs: Last Vital Signs Temp 98.2 F 01/12/18 13:02 Pulse 125 H 01/12/18 13:02 Resp 18 01/12/18 13:02 BP 150/95 H 01/12/18 13:02 Pulse Ox 99 01/12/18 13:02 - Medical History PMH: Anxiety, HTN, Hypothyroidism, Malignancy (breast cancer, thyroid cancer in remission), Parkinson's Disease Denies: Chronic Kidney Disease - Surgical History Surgical History: No Surg Hx - Family History Family History: States: CAD - Immunization History Hx Tetanus Toxoid Vaccination: Yes Hx Influenza Vaccination: No Hx Pneumococcal Vaccination: No - Home Medications Home Medications: Ambulatory Orders Medication Instructions Recorded RX: Rasagiline Mesylate [Azilect] 1 mg PO DAILY 08/11/14 Boniva 150 mg PO Q30D 08/30/16 RX: Calcium Carbonate/Vitamin D3 1 tab PO DAILY 08/30/16 [Calcium 600 + Vit D Tablet] RX: Carbidopa/Levodopa 1 tab PO TID 08/30/16 [Carbidopa-Levodopa 25-100 Tab] RX: Chlorzoxazone [Lorzone] 375 mg PO BID 08/30/16 RX: Escitalopram [Lexapro] 10 mg PO DAILY 08/30/16 RX: Levothyroxine [Synthroid] 112 mcg PO DAILY 08/30/16 RX: Magnesium Oxide [Mgo] 250 mg PO DAILY 08/30/16 RX: Rotigotine [Neupro] 6 mg TD DAILY 08/30/16 RX: Ubidecarenone [Coenzyme Q-10] 100 mg PO DAILY 08/30/16 RX: Vit B12/Levomefolate/Vit B6/B2 1 tab PO DAILY 08/30/16 [Cerefolin Caplet] RX: Aspirin [Ecotrin] 81 mg PO DAILY 08/31/16 Biotin/Calcium Carbonate [Biotin 12/21/17 800 Mcg Tablet] RX: Ibuprofen [Motrin Tab] 600 mg PO Q6 PRN #15 tab 12/21/17 Ciprofloxacin HCl [Cipro] 500 mg PO BID #14 tablet 01/12/18 Metronidazole [Flagyl] 500 mg PO TID #21 tablet 01/12/18 - Allergies Allergies/Adverse Reactions: Allergies Allergy/AdvReac Type Severity Reaction Status Date / Time No Known Allergies Allergy Verified 08/30/16 14:05 Review of Systems ROS Statement: Except As Marked, All Systems Reviewed And Found Negative Gastrointestinal: Positive for: Constipation Physical Exam - Physical Exam Appears: Positive for: Well, Non-toxic, No Acute Distress Skin: Positive for: Normal Color, Warm. Negative for: Rash Eye Exam: Positive for: Normal appearance Cardiovascular/Chest: Positive for: Regular Rate, Rhythm Respiratory: Positive for: CNT, Normal Breath Sounds Gastrointestinal/Abdominal: Positive for: Normal Exam, Bowel Sounds, Soft. Negative for: Tenderness, Distended, Guarding Rectal: Positive for: Other (Lola RN present as milk powder grinder; no digital exam done). Negative for: Hemorrhoids Neurologic/Psych: Positive for: Alert, Oriented (x3) - Laboratory Results Result Diagrams: 01/12/18 17:07 01/12/18 17:07 - ECG ECG: Positive for: Interpreted By Me ECG Rhythm: Positive for: Sinus Tachycardia. Negative for: ST/T Changes Rate: 113 O2 Sat by Pulse Oximetry: 99 - Radiology X-Ray: Viewed By Me (and Dr. Cueto) X-Ray Interpretation: Other (FOS; no obstructions) - Progress ED Course And Treament: Enema, mag citrate ordered but before getting medications pt. reports having BM while in ED and is now feeling much better. Repeat VS - pt. still tachycardic. Denies chest pain, SOB. Labs, EKG, CTA chest w/ IV contrast ordered. 1740 WBC: elevated. CT abd/pelvis added. HR on pasteurizing supervisor is SR at [address]-T wave changes. Disposition - Clinical Impression Clinical Impression: Jejunitis - Patient ED Disposition Is Patient to be Admitted: Transfer of Care (Signed out to [facility] ORR pending CT results and re-evaluation.) - Disposition Disposition Time: 20:00 Condition: FAIR Prescriptions: Ciprofloxacin HCl [Cipro] 500 mg PO BID #14 tablet Metronidazole [Flagyl] 500 mg PO TID #21 tablet Instructions: Constipation in Adults
[2018-01-12] MEDS ORDERED: Sodium Chloride 0.9% 1,000 ML IV STA (16:42)
[2018-01-12 17:12] LABS: BASO % 0.3 % (0.0-2.0); HEMOGLOBIN 14.1 g/dL (12.0-16.0); LYMPH # 0.5 K/uL (1.0-4.3); LYMPH % 3.5 % (20.0-40.0); MEAN CELL VOLUME 87.7 fl (81.0-99.0); MEAN CORPUSCULAR HEMOGLOBIN 29.5 pg (27.0-31.0); MEAN CORPUSCULAR HGB CONC 33.6 g/dL (33.0-37.0); MEAN PLATELET VOLUME 9.7 fl (7.2-11.7); MONO # 0.6 K/uL (0.0-0.8); MONO % 3.9 % (0.0-10.0); NEUT % 92.3 % (50.0-75.0); NRBC % 0.1 % (0.0-0.0); PLATELET COUNT 184 K/uL (130-400); RBC 4.78 Mil/uL (3.80-5.20); RED CELL DISTRIBUTION WIDTH 13.1 % (11.5-14.5); WHITE BLOOD COUNT 15.2 K/uL (4.8-10.8)
[2018-01-12 17:32] LABS: ALB/GLOB RATIO 1.2 (1.0-2.1); ALBUMIN 4.4 g/dL (3.5-5.0); ALT/SGPT 20 U/L (9-52); AST/SGOT 37 U/L (14-36); BLOOD UREA NITROGEN 16 mg/dl (7-17); CALCIUM 9.9 mg/dL (8.4-10.2); GFR NON-AFRICAN AMERICAN > 60
[2018-01-12] MEDS ORDERED: Iohexol 240 (50 ml) PO ONE (17:32)
[2018-01-12 17:37] LABS: URINE BILIRUBIN NEGATIVE (NEGATIVE); URINE BLOOD NEGATIVE (NEGATIVE); URINE CLARITY CLEAR (Clear); URINE COLOR STRAW (YELLOW); URINE GLUCOSE (UA) NEG (Normal); URINE LEUKOCYTE ESTERASE NEG Leu/uL (Negative); URINE PROTEIN NEGATIVE (NEGATIVE); URINE UROBILINOGEN 0.2-1.0 mg/dL (0.2-1.0)
[2018-01-12] MEDS ORDERED: Iohexol 240 (50 ml) ONE (17:40)
[2018-01-12 18:46] LABS: BANDS 3 % (0-2); LYMPHOCYTE 5 % (20-50); MONOCYTE 5 % (0-10); NEUTROPHIL 86 % (42-75); REACTIVE LYMPHOCYTES 1 % (0-0); TOTAL CELLS COUNTED 100
[2018-01-12 18:47] LABS: HYPOCHROMIC SLIGHT; PLATELET ESTIMATE NORMAL (NORMAL); TOXIC GRANULATION PRESENT
[2018-01-12] MEDS ORDERED: Iodixanol 320 MG/ML 100 ML BOTTLE IV ONE (19:22)
[2018-01-12] MEDS ORDERED: Sodium Chloride 0.9% 50 ML IV ONE (19:22)
--- NOTE | 2018-01-12 22:29 | ED PDOC ---
- Laboratory Results Result Diagrams: 01/12/18 17:07 01/12/18 17:07 - ECG O2 Sat by Pulse Oximetry: 95 - Progress ED Course And Treament: CT abd/pelvis: 1. 4 x 3 cm dense lesion in the mid pole of the right kidney anterolaterally consistent with renal cell carcinoma until proven otherwise, although hemorrhagic vs proteinaceous cyst is a possibility. Consultation with service is recommended. Further evaluation ith MRI pre/post IV contrast is recommended. 2. Jejunitis. 3 Small mesenteric lymph nodes are present, possibly reactive. 4. Small hiatal hernia. 5. Nonspecific presacral edema. CTA chest with iv contrast: unremarkable. results d/w patient. States she follows with urology for renal cell carcinoma. Will call GI to f/u. Currently feels much improved and requests food. repeat pulse rate 95 Disposition - Clinical Impression Clinical Impression: Jejunitis - POA Present On Arrival: None - Disposition Disposition: Routine/Home Disposition Time: 22:31 Condition: FAIR Prescriptions: Ciprofloxacin HCl [Cipro] 500 mg PO BID #14 tablet Metronidazole [Flagyl] 500 mg PO TID #21 tablet Instructions: Constipation in Adults
[2018-01-13 03:20] VITALS: BP 137/88; RESP 18; TEMP 99
--- NOTE | 2018-01-13 06:55 | CARD ---
APPROVED REPORT Date of service: 01/12/2018 EKG Measurement Heart [id number] <Conclusion> Sinus tachycardia Otherwise normal ECG
--- NOTE | 2018-01-13 09:56 | RAD ---
Date of service: 01/12/2018 HISTORY: tachycardia COMPARISON: 01/12/2018 at 3:28 p.m. FINDINGS: LUNGS: The lungs are well inflated and clear. PLEURA: No pleural effusions or pneumothorax. CARDIOVASCULAR: The heart is normal in size. No aortic atherosclerotic calcification present. OSSEOUS STRUCTURES: Within normal limits for the patient's age. VISUALIZED UPPER ABDOMEN: Normal. OTHER FINDINGS: None. IMPRESSION: No active pulmonary disease.
--- NOTE | 2018-01-13 10:40 | CT ---
Date of service: 01/12/2018 PROCEDURE: CT Chest with contrast (Pulmonary Angiogram) HISTORY: tachycardic, hx of CA COMPARISON: None available. TECHNIQUE: Axial computed tomography images were obtained of the chest in the pulmonary arterial phase of enhancement. Coronal and sagittal reformatted images were created and reviewed. Intravenous contrast dose: 95 mL Visipaque 320 Radiation dose: Total exam DLP = 1367.39 mGy-cm. This CT exam was performed using one or more of the following dose reduction techniques: Automated exposure control, adjustment of the mA and/or kV according to patient size, and/or use of iterative reconstruction technique. FINDINGS: PULMONARY ARTERIES: Unremarkable. No pulmonary embolism. AORTA: No acute findings. No thoracic aortic aneurysm. No aortic atherosclerotic calcification or mural plaque present. LUNGS: Unremarkable. No nodule, mass or pulmonary consolidation. PLEURAL SPACES: Unremarkable. No effusion or pneumothorax. HEART: Unremarkable. No cardiomegaly. No significant pericardial effusion. LYMPH NODES: No lymphadenopathy. BONES, CHEST WALL: Unremarkable. No fracture or destructive lesion OTHER FINDINGS: Small hiatal hernia noted. IMPRESSION: No evidence of pulmonary embolism. Small hiatal hernia. Otherwise unremarkable examination. The preliminary findings for this examination were reported by [facility] at 9 p.m. on 01/12/2018.. There is concurrence of this report with the preliminary findings.
--- NOTE | 2018-01-13 12:14 | CT ---
Date of service: 01/12/2018 PROCEDURE: CT Abdomen and Pelvis with contrast HISTORY: abdominal pain, constipation, leukocytosis COMPARISON: 12/21/2017 TECHNIQUE: 2.5 mm contiguous axial sections were acquired through the abdomen and pelvis during the portal venous phase of enhancement, and after a 150 sec delay. Contrast dose: 95 mL Visipaque 320 Radiation dose: Total exam DLP = 1367.39 mGy-cm. This CT exam was performed using one or more of the following dose reduction techniques: Automated exposure control, adjustment of the mA and/or kV according to patient size, and/or use of iterative reconstruction technique. FINDINGS: LOWER THORAX: Small hiatal hernia. No infiltrate/effusion. LIVER: Unremarkable. No gross lesion or ductal dilatation. GALLBLADDER AND BILE DUCTS: Unremarkable. PANCREAS: Unremarkable. No gross lesion or ductal dilatation. SPLEEN: Unremarkable. ADRENALS: Unremarkable. No mass. KIDNEYS AND URETERS: Right upper pole ovoid renal mass, measuring approximately 3.9 x 3.0 cm. This mass measures 59 Hounsfield units attenuation postcontrast. This is not significantly altered from its precontrast measurement on prior CT of 12/21/2017. However, no noncontrast CT examination was performed at this time. Nevertheless, enhancement is not suspected. Likely hemorrhagic or proteinaceous cyst. Correlate with ultrasound examination. No other renal mass. No hydronephrosis. No renal calculus appreciated. Delayed urographic phase images demonstrate no abnormality of the pelvicaliceal system or ureter bilaterally. VASCULATURE: Unremarkable. No aortic aneurysm. No aortic atherosclerotic calcification or mural plaque present. BOWEL: Unremarkable. No obstruction. No gross mural thickening. APPENDIX: Normal appendix. PERITONEUM: No ascites. Mild nonspecific presacral edema. LYMPH NODES: Unremarkable. No enlarged lymph nodes. BLADDER: Unremarkable. REPRODUCTIVE: Unremarkable uterus aside from a coarse fundal calcification likely representing a small calcified degenerated fibroid. BONES: No acute fracture. OTHER FINDINGS: None. IMPRESSION: Intermediate to high attenuation right upper pole renal mass 4 cm,, possibly hemorrhagic/proteinaceous cyst. Cannot rule out neoplasm. Further evaluation with renal ultrasound is advised. Small hiatal hernia. Nonspecific presacral edema. No other significant abnormality. The preliminary findings for this examination were reported by [facility] at 9:29 p.m. on 01/12/2018. There is concurrence of this report with the preliminary findings.
[2018-01-16 16:39] VITALS: PULSE 113; O2SAT 99
== END 2018-01-12 23:40 | disposition home or self-care (01) ==
LOC: H.ER 13:00
DX: K59.00 Constipation, unspecified (principal); G20 Parkinson's disease; I10 Essential (primary) hypertension; Z82.49 Family history of ischemic heart disease and other diseases of the circulatory system; Z85.850 Personal history of malignant neoplasm of thyroid; Z85.3 Personal history of malignant neoplasm of breast
CPT/HCPCS: 71045; 71275; 74022; 74177; 80053; 81003; 84484; 85025; 93005; 96360; 99284; J7030; Q9966; Q9967